=== PATIENT | female | born 1955 | race Caucasian/White ===

== ENCOUNTER 2017-07-09 06:57 | Day surgery (SDC) | payer BC ==
[2017-07-09] VITALS (7 sets, daily range): BP systolic 130–157; BP diastolic 69–89; PULSE 60–91; TEMP 97–97.6
[~2017-07-09] VITALS: Ht 165.1 cm; Wt 59.3 kg
[~2017-07-09 06:57] MED LIST: LIPITOR 10MG10 MG PO; NORCO 325 MG-51 TAB PO; PLAVIX 75MG TAB75 MG PO; PRINZIDE 25 MG-1 TAB PO
[2017-07-09] MEDS ORDERED: LIPITOR 10MG10 MG PO (08:11)
[2017-07-09] MEDS ORDERED: PRINIVIL5 MG PO (08:11)
[2017-07-09] MEDS ORDERED: NEURONTIN600 MG/TAB PO (08:13)
[2017-07-09] MEDS ORDERED: NORCO 325 MG-51 TAB PO (11:00)
== END 2017-07-09 12:03 | disposition home or self-care (01) ==
LOC: SDCO 06:57
DX: C77.0 Secondary and unspecified malignant neoplasm of lymph nodes of head, face and neck (principal); I10 Essential (primary) hypertension; K21.9 Gastro-esophageal reflux disease without esophagitis; F17.210 Nicotine dependence, cigarettes, uncomplicated; Z79.01 Long term (current) use of anticoagulants; Z86.73 Personal history of transient ischemic attack (TIA), and cerebral infarction without residual deficits; Z85.43 Personal history of malignant neoplasm of ovary; Z83.3 Family history of diabetes mellitus; Z80.0 Family history of malignant neoplasm of digestive organs; Z82.3 Family history of stroke; Z90.49 Acquired absence of other specified parts of digestive tract; Z92.21 Personal history of antineoplastic chemotherapy
CPT/HCPCS: J0690; J2405; J2704; J3010; J7120